=== PATIENT | female | born 1980 | race Caucasian/White ===

== ENCOUNTER 2016-06-03 00:59 | Emergency (ER) | payer OTHER ==
--- NOTE | 2016-06-03 02:37 | ERNOTE ---
Headache ER HPI - Narrative Date of Service: 06/03/16 - PCP: Eron Ramirez D.O. - General Presenting Symptoms: headache Time Seen by Provider: 06/03/16 02:36 Source: patient Exam Limitations: no limitations - Immun/Allergies/Home Medications Immunizations: IMMUNIZATION HX Immunizations Up to Date Yes History of Influenza Vaccine Yes Hx Pneumococcal Vaccination No Allergies/Adverse Reactions: Allergies No Known Allergies Allergy (Verified 06/03/16 01:10) Home Medications: HOME MEDICATIONS Lorazepam [Ativan] 2 mg PO HS 08/06/14 [Last Taken Unknown] Gabapentin [Neurontin] 600 mg PO TID 11/30/15 [Last Taken Unknown] Venlafaxine HCl 75 mg PO DAILY 11/30/15 [Last Taken Unknown] Zonisamide [Zonegran] 25 mg PO TID 11/30/15 [Last Taken Unknown] lamoTRIgine [Lamictal] 100 mg PO DAILY 11/30/15 [Last Taken Unknown] Naproxen [Naprosyn] 500 mg PO BID PRN #60 tab 04/24/16 [Last Taken 06/02/16] Methylphenidate HCl [Concerta] 54 mg PO DAILY 06/03/16 [Last Taken Unknown] Oxycodone HCl/Acetaminophen [Percocet 5-325 mg Tablet] 1 each PO Q4H PRN [Last Taken 06/02/16] - Pain Pain Score: 4 - History of Present Illness Narrative: Patient with recent sinus surgery and packing removal c/o severe unrelenting headache. Patient tried multiple otc and rx meds with no relief. Date (Duration): 06/01/16 Time (Timing): 00:15 Activity at onset: other - recent sinus surgery Timing of Headache: abrupt Context Headache: Present: new onset Quality: Present: pressure Severity Maximum: Present: mild Severity-Currently: Present: mild Headache frequency: Present: no recent headache Modifying Factors - (Improves): Reports: rest, medication, other - has tried ibuprofen, and even drank a beer to help her sleep nothing is taking pain away. Modifying Factors - (Worsens): Reports: movement, exposure to light Associated Symptoms: Reports: denies symptoms, facial pain - frontal glabellar area notably most bothersome'. Denies: fever/chills, nausea, vomiting, sweating , nasal congestion, nasal drainage Exacerbated by:: Reports: light, movement, position Prior Treament: Reports: recently seen, other - ENT is following patient she is to follow up in 1 wk. Review of Systems - Review of Systems Constitutional: Present: no symptoms reported, malaise EYE: Present: other - pressure behind eyes. ENT: Present: See HPI, other. Absent: nasal drainage Respiratory: Present: no symptoms reported Cardiology: Present: no symptoms reported Gastrointestinal/Abdominal: Present: no symptoms reported Genitourinary: Present: no symptoms reported Musculoskeletal: Present: no symptoms reported Skin: Present: no symptoms reported Neurological: Present: no symptoms reported, See HPI, headache Endocrine: Present: no symptoms reported Hematologic/Lymphatic: Present: no symptoms reported Psych: Present: no symptoms reported All Other Systems: All systems neg except as marked - Narrative Narrative: hx of sinus surgery, s/p removal of nasal packing, has severe pain. she is due to follow up with ENT in 1 wk. - Patient's Past Medical History Patient History - Medical: Anxiety, Bipolar, Chronic Pain, Depression, Headache Patient History - Cardiac/Respiratory: Hypertension Patient History - Cancer: No Hx of Cancer Patient History - Surgical Procedures: Tubal Ligation, Other LMP (females 10-50): 3 weeks - Family History Family History:: no untoward family reactions to anesthesia, no familial bleeding tendencies, no family history of clotting disorders, no family history of premature - Social History Living Situations: home Smoking Status: Current some day smoker Alcohol Use: occasionally Drug Use: none - Immunizations Immunizations Up to Date: No Hx Pneumococcal Vaccination: More Information Required to Determine History of Influenza Vaccine: More Information Required to Determine Physical Exam - Physical Exam General Appearance: Present: wd/wn, moderate distress, thin, sleeping/easy to arouse Eye Exam: Normal inspection: bilateral, PERRL: bilateral, EOMI: bilateral Ears, Nose, Throat: Present: nasal congestion, normal pharynx. Absent: abnormal TM (L), sinus pain/drainage Neck: Present: normal inspection, nontender. Absent: lymphadenopathy (R), lymphadenopathy (L) Respiratory: Present: no respiratory distress, normal breath sounds, no accessory muscle use, chest nontender, lungs clear. Absent: crackles, rales, rhonchi, stridor Peripheral Pulses: N=norm/S=strong/W=weak/B=bound/A=absent: Carotid (R): Normal , Carotid (L): Normal, Radial (R): Normal, Radial (L): Normal Gastrointestinal/Abdominal: Present: normal bowel sounds, nontender, nondistended, soft Rectal Exam: Present: deferred Back Exam: Present: normal inspection, normal range of motion, no CVA tenderness , no vertebral tenderness Extremity Exam: Present: normal inspection, non-tender, no edema, normal range of motion Neurological Exam: Present: alert, oriented, normal mood/affect DTR: N=norm/NB=norm/brisk/A=abs/DD=dull/dimin/HC=hyperactive: Bicep (R): Normal , Bicep (L): Normal, Tricep (R): Normal, Tricep (L): Normal Skin Exam: Present: normal color, warm/dry. Absent: diaphoresis, pallor ED Progress - Date and Time Seen: Date and Time: 06/03/16 04:33 patient states medications are starting to work for pain. - Vital Signs Vital Signs: Vital Signs 06/03/16 01:04 Temperature 36.2 C L Pulse Rate 97 Respiratory 18 Rate Blood Pressure 135/85 O2 Sat by Pulse 98 Oximetry - Progress/Reassessment Chief Complaint: Headache Plan - Plan Plan: Patient will be observed about 15 more min. Departure Clinical Impression: Headache Qualifiers: Headache type: other vascular headache Qualified Code(s): G44.1 - Vascular headache, not elsewhere classified Sinusitis Qualifiers: Sinusitis location: ethmoidal Chronicity: acute Recurrence: not specified as recurrent Qualified Code(s): J01.20 - Acute ethmoidal sinusitis, unspecified - Departure Disposition: Home self-care Condition: Good Instructions: Sinus Headache Additional Instructions: Follow up with ENT if not improving, use the saline nasal spray daily,drink more fluids and if not improving call your doctor. Referrals: Eron Ramirez DO [Primary Care Provider] -
[2016-06-03] MEDS ORDERED: KETOROLAC TROMETHAMINE 30 MG/ML VIAL IM ONE (04:04)
[2016-06-03] MEDS ORDERED: HYDROmorphone HCL 1 MG/ML DISP.SYRIN IM ONE (04:06)
[2016-06-03] MEDS ORDERED: KETOROLAC TROMETHAMINE 60 MG/2 ML VIAL IM ONE (04:26)
[2016-06-03] MEDS ORDERED: HYDROmorphone HCL 1 MG/ML DISP.SYRIN ONE (04:26)
[2016-06-03] MEDS ORDERED: KETOROLAC TROMETHAMINE 30 MG/ML VIAL ONE (04:29)
[2016-06-03 04:55] VITALS: BP 130/78
== END 2016-06-03 04:50 | disposition home or self-care (01) ==
LOC: ER 00:59
DX: G44.1 Vascular headache, not elsewhere classified (principal); J01.20 Acute ethmoidal sinusitis, unspecified; F17.210 Nicotine dependence, cigarettes, uncomplicated; F41.9 Anxiety disorder, unspecified; F31.9 Bipolar disorder, unspecified; I10 Essential (primary) hypertension

== ENCOUNTER 2016-07-04 22:55 | Emergency (ER) | payer OTHER ==
--- NOTE | 2016-07-05 00:04 | ERNOTE ---
Headache ER HPI - General Presenting Symptoms: headache, "migraine" Time Seen by Provider: 07/04/16 23:48 Source: patient Exam Limitations: no limitations - Immun/Allergies/Home Medications Immunizations: IMMUNIZATION HX Immunizations Up to Date Yes History of Influenza Vaccine No Hx Pneumococcal Vaccination No Allergies/Adverse Reactions: Allergies No Known Allergies Allergy (Verified 06/03/16 01:10) Home Medications: HOME MEDICATIONS Lorazepam [Ativan] 2 mg PO HS 08/06/14 [Last Taken Unknown] Gabapentin [Neurontin] 600 mg PO TID 11/30/15 [Last Taken Unknown] Venlafaxine HCl 75 mg PO DAILY 11/30/15 [Last Taken Unknown] Zonisamide [Zonegran] 25 mg PO TID 11/30/15 [Last Taken Unknown] lamoTRIgine [Lamictal] 100 mg PO DAILY 11/30/15 [Last Taken Unknown] Naproxen [Naprosyn] 500 mg PO BID PRN #60 tab 04/24/16 [Last Taken 06/02/16] Methylphenidate HCl [Concerta] 54 mg PO DAILY 06/03/16 [Last Taken Unknown] Eszopiclone [Lunesta] 3 mg PO HS 07/04/16 [Last Taken Unknown] HYDROcodone/ACETAMINOPHEN [[place] 5-325] 1 - 2 tab PO Q6H PRN 07/04/16 [Last Taken Unknown] - Pain Pain Score: 7 - History of Present Illness Narrative: Has migraines triggered by stress. Her son was in the ED earlier and the stress of the situation gave her a headache Activity at onset: argument Timing of Headache: abrupt Quality: Present: throbbing Severity Maximum: Present: moderate Severity-Currently: Present: moderate Headache frequency: Present: frequent headaches - 2/ week Exacerbated by:: Reports: light, noise, movement Review of Systems - Review of Systems Constitutional: Absent: recent illness, fever, chills EYE: Absent: eye pain ENT: Present: no symptoms reported Respiratory: Present: no symptoms reported Cardiology: Present: no symptoms reported Gastrointestinal/Abdominal: Present: no symptoms reported Genitourinary: Present: no symptoms reported Musculoskeletal: Present: no symptoms reported Skin: Present: no symptoms reported Neurological: Absent: seizure, weakness, numbness Endocrine: Present: no symptoms reported Hematologic/Lymphatic: Present: no symptoms reported Psych: Present: no symptoms reported - Patient's Past Medical History Patient History - Medical: Anxiety, Bipolar, Chronic Pain, Depression, Headache Patient History - Cardiac/Respiratory: No pertinent hx Patient History - Cancer: No Hx of Cancer Patient History - Surgical Procedures: Tubal Ligation, Other Patient History - Other: None LMP (females 10-50): 1 month - Social History Living Situations: home Abuse History: Hx of Substance Use Psych History: Hx of Anxiety, Hx of Depression, Hx of Bipolar Disorder Smoking Status: Current every day smoker Patient requests Smoking Cessation Consult: No Initiate information on Smoking Cessation: No Alcohol Use: occasionally Drug Use: none - Immunizations Immunizations Up to Date: Yes Hx Pneumococcal Vaccination: No History of Influenza Vaccine: No Physical Exam - Physical Exam General Appearance: Present: wd/wn, moderate distress Eye Exam: PERRL: bilateral Ears, Nose, Throat: Present: normal ENT inspection Neck: Present: normal inspection, nontender, supple Respiratory: Present: no respiratory distress, no accessory muscle use Back Exam: Present: normal inspection, normal range of motion, no CVA tenderness , no vertebral tenderness Extremity Exam: Present: normal inspection, non-tender, no edema, normal range of motion Neurological Exam: Present: alert, oriented, no motor/sensory deficits Skin Exam: Present: normal color, warm/dry Lymphatic Exam: Present: no adenopathy ED Progress - Vital Signs Vital Signs: Vital Signs 07/04/16 23:00 Temperature 36.6 C Pulse Rate 92 Respiratory 16 Rate Blood Pressure 129/80 O2 Sat by Pulse 100 Oximetry - Progress/Reassessment Chief Complaint: Headache Progress:: Improved Progress Note-Subjective: 07/05/16 00:53 Pt feeling better, sitting in the waiting room with her mother Departure Clinical Impression: Migraine Qualifiers: Migraine type: without aura Status migrainosus presence: without status migrainosus Intractability: not intractable Qualified Code(s): G43.009 - Migraine without aura, not intractable, without status migrainosus - Departure Disposition: Home self-care Condition: Good Instructions: Migraine Headache, [id number]
[2016-07-05] MEDS ORDERED: PROMETHAZINE HCL 25 MG/ML AMPUL IM ONE (00:11)
[2016-07-05] MEDS ORDERED: ORPHENADRINE CITRATE 30 MG/ML VIAL IM ONE (00:11)
--- OUTSIDE RECORDS SUMMARY | 2016-07-05 00:14 | XMS REPORT | Continuity of Care Document ---
:1980 Author Organization [facility] ([facility]) [place] [address] Phone [phone] Care Team Providers Name Role Phone Provider, No-Primary Care Primary Care Provider Unavailable Source Comments This disclosure is being made pursuant to the Care Everywhere program, applicable federal and state laws, and may not contain all informaitonavailable regarding this patient.[facility] ([facility]) Active Allergies and Adverse Reactions No Known Allergies Current Medications Prescription Sig. Disp. Refills Start Date End Date Status amphetamine-dextroamp Take 30 mg by mouth Active hetamine (ADDERALL) 2 times daily. 30 mg tablet tobramycin 40 mg/mL instill 1 Drop onto 1 Bottle 3 08/22/2010 Active 0.9 % ophthalmic the right eye every solution 1 hour. Indications: Infection vancomycin 500 mg 16 instill 1 Drop onto 1 Bottle 3 08/22/2010 Active mg/mL ophthalmic the right eye every solution 1 hour. Indications: Infection HYDROcodone-acetamino Take 1 Tab by mouth 20 Tab 0 08/22/2010 Active phen 5-500 mg per every 6 hours as tablet needed. Indications: Pain prednisoLONE acetate instill 1 Drop onto 1 Bottle 1 08/23/2010 Active 1 % ophthalmic the right eye 4 suspension times daily. Indications: eye inflammation Active Problems Problem Noted Date Bacterial keratitis right eye 08/22/2010 Social History Tobacco Use Types Packs/Day Years Used Date Current Every Day Smoker Smokeless Tobacco: Never Used Alcohol Use Drinks/Week oz/Week Comments No Last Filed Vital Signs Vital Sign Reading Time Taken Blood Pressure 112/68 08/21/2010 11:12 PM CDT Pulse 101 08/21/2010 11:12 PM CDT Temperature 36.6 C (97.9 F) 08/21/2010 11:12 PM CDT Respiratory Rate 22 08/21/2010 11:12 PM CDT Height - - Weight - - Body Mass Index - - Oxygen Saturation 100% 08/21/2010 11:12 PM CDT Plan of Care Health Maintenance Due Date Last Done Comments Hepatitis B Vaccine (1 of 3 - Primary Series) 1980 Tdap Vaccine 1989 Lipid Disorder Screening 02/16/1996 MMR Vaccine 02/16/1996 Td Vaccine 02/16/1996 Pneumococcal Vaccine (1 of 1 - PPSV23) 1997 Cervical Cancer Screening 02/16/2008 Influenza Vaccine: Seasonal (#1) 12/13/2015 Results from Last 3 Months Not on file
[2016-07-05] MEDS ORDERED: PROMETHAZINE HCL 25 MG/ML AMPUL ONE (00:16)
[2016-07-05] MEDS ORDERED: ORPHENADRINE CITRATE 30 MG/ML VIAL ONE (00:16)
[2016-07-05 00:56] VITALS: BP 119/87
== END 2016-07-05 00:55 | disposition home or self-care (01) ==
LOC: ER 22:55
DX: G43.009 Migraine without aura, not intractable, without status migrainosus (principal); F17.210 Nicotine dependence, cigarettes, uncomplicated; F31.9 Bipolar disorder, unspecified; F41.9 Anxiety disorder, unspecified

== ENCOUNTER 2016-10-18 11:57 | Emergency (ER) | payer OTHER ==
[2016-10-18 12:08] VITALS: BP 126/79
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
--- OUTSIDE RECORDS SUMMARY | 2016-10-18 12:41 | XMS REPORT | Continuity of Care Document ---
:1980 Author Organization [facility] ([facility]) Address [place] [address] Phone [phone] Care Team Providers Name Role Phone Provider, No-Primary Care Primary Care Provider Unavailable Source Comments This disclosure is being made pursuant to the Care Everywhere program, applicable federal and state laws, and may not contain all informaitonavailable regarding this patient.[facility] ([facility]) Active Allergies and Adverse Reactions No [...]
== END 2016-10-18 12:40 | disposition home or self-care (01) ==
LOC: ER 11:57
DX: S00.33XA Contusion of nose, initial encounter (principal); S40.212A Abrasion of left shoulder, initial encounter; Z72.0 Tobacco use; F41.9 Anxiety disorder, unspecified; F31.70 Bipolar disorder, currently in remission, most recent episode unspecified; G89.29 Other chronic pain; V43.02XA Car driver injured in collision with other type car in nontraffic accident, initial encounter; Y93.9 Activity, unspecified; Y92.410 Unspecified street and highway as the place of occurrence of the external cause